=== PATIENT | female | born 1960 | race Caucasian/White ===

== ENCOUNTER 2017-01-19 13:48 | Emergency (ER) | payer MEDICAID ==
[2017-01-19 15:53] VITALS: BP 124/88
== END 2017-01-19 15:33 | disposition home or self-care (01) ==
LOC: ED 13:48
DX: G89.29 Other chronic pain (principal); M25.552 Pain in left hip; Z79.891 Long term (current) use of opiate analgesic

== ENCOUNTER 2017-12-06 00:01 | Emergency (ER) | payer MEDICAID ==
[~2017-12-06] VITALS: Ht 167.6 cm; Wt 85.7 kg
[2017-12-06 00:03] VITALS: Ht 167.6 cm; Wt 85.7 kg
[2017-12-06 04:12] VITALS: BP 116/77
== END 2017-12-06 04:12 | disposition home or self-care (01) ==
LOC: ED 00:01
DX: S83.91XA Sprain of unspecified site of right knee, initial encounter (principal); M25.461 Effusion, right knee; Z88.0 Allergy status to penicillin; Z88.8 Allergy status to other drugs, medicaments and biological substances; W19.XXXA Unspecified fall, initial encounter; Y93.01 Activity, walking, marching and hiking; Y92.89 Other specified places as the place of occurrence of the external cause; Y99.8 Other external cause status

== ENCOUNTER 2019-04-11 17:52 | Emergency (ER) | payer MEDICAID ==
[~2019-04-11] VITALS: Ht 167.6 cm; Wt 82.6 kg
[2019-04-11 18:07] VITALS: Ht 167.6 cm; Wt 82.6 kg
[2019-04-11 20:23] LABS: BASOPHIL % 0.3 % (0-2); PLATELET COUNT 271 x10^3mcL (130-400); RED CELL DISTRIBUTION WIDTH 13.2 % (11.5-14.5)
[2019-04-11 20:47] LABS: ALBUMIN 3.8 g/dL (3.4-5.0); ALKALINE PHOSPHATASE 164 U/L (46-116); ALT/SGPT 132 U/L (14-59); AST/SGOT 88 U/L (15-37); BILIRUBIN TOTAL 0.42 mg/dL (0.20-1.00); CALCIUM 8.3 mg/dL (8.5-10.1); CARBON DIOXIDE 21.7 mmol/L (21-32); CHLORIDE SERUM 108 mmol/L (98-107); GFR1 > 60 mL/min; GLUCOSE SERUM 95 mg/dL (74-106); POTASSIUM SERUM 3.8 mmol/L (3.5-5.1); SODIUM SERUM 143 mmol/L (136-145); TOTAL PROTEIN, SERUM 8.1 g/dL (6.4-8.2)
[2019-04-11] MEDS ORDERED: NOR10T PO (21:11)
[2019-04-11] MEDS ORDERED: ATIVAN1 MG PO (21:11)
[2019-04-11 21:57] VITALS: BP 106/68
== END 2019-04-11 21:57 | disposition home or self-care (01) ==
LOC: ED 17:52
PROVIDERS: Emergency Medicine
DX: L30.4 Erythema intertrigo (principal); G89.29 Other chronic pain; M25.552 Pain in left hip; Z88.0 Allergy status to penicillin; Z88.6 Allergy status to analgesic agent; Z98.890 Other specified postprocedural states
CPT/HCPCS: J1956; J2270; J2405; J7030; J7040

== ENCOUNTER 2019-04-13 12:53 | Inpatient (IN) | payer MEDICAID ==
[~2019-04-13] VITALS: Ht 172.7 cm; Wt 80.7 kg
[~2019-04-13 12:53] MED LIST: ATIVAN1 MG PO; NOR10T PO
[2019-04-13 13:01] VITALS: Ht 172.7 cm; Wt 80.7 kg
--- NOTE | 2019-04-13 13:18 | NUR ---
PER PT WAS HERE THREE DAYS AGO FOR "SKIN INFECTION" TO LEFT HIP FOLD. PER PT STS SHE WAS INSTRUCTED BY DR. RAMOS TO COME BACK IF PT FELT WORSE OR "INFECTION" WORSENED. PER PT STS SHE HAS BEEN HAVING A FEVER OF "101 AND SHAKING". LEFT HIP SKIN FOLD NOTED WITH FOWEL ODOR, ECCHYMOSIS NOTED TO SKIN. PER PT TOLD PT TO COME BACK AND TO BE ADMITTED. PT STS THAT SHE IS HAVING NAUSEA AND VOMITING. PT STS SHE HAS NOT VOMITED TODAY BUT THAT SHE DID LAST NIGHT. PT DENIES ANY CHEST PAIN. PT STS SHE "JUST WANTS TO FEEL BETTER". VSS. NO DISTRESS NOTED. RESP E/U. WILL CONTINUE TO MONITOR.
--- NOTE | 2019-04-13 14:21 | NUR ---
PT FILLING OUT PAPERS FOR INFORMATION FROM [facility].
--- NOTE | 2019-04-13 14:40 | NUR ---
PT HEARD YELLING AND FOUND ON FLOOR NEXT TO TINO. PT STS LEFT LOWER LEG PAIN, NO DEFORMITY NOTED, NO ECCHYMOSIS NOTED. PT HAS NOTED SURGICAL SCARS TO LEFT LEG. PT DENIES HITTING HEAD. PT KEEPS SAYING PREVIOUSLY AND NOW THAT SHE JUST DOESNT FEEL RIGHT AND "I WANT TO BE ADMITTED". PT HAS BEEN AGITATED SINCE VISIT INSISTING WANTING TO BE ADMITTED FOR LEFT "HIP INFECTION" PER PT. DR. PEREZ AT BEDSIDE FOR POST FALL. PT INSISTING ON PAIN MEDICATIONS SINCE ARRIVAL TO ED. PT DENIES DIZZINESS OR PAIN. VSS. PT TAKEN TO XRAY. WILL CONTINUE TO MONITOR. +CAP REFILL ALL EXTREMITIES.
--- NOTE | 2019-04-13 15:15 | NUR ---
PT AGAIN REQUESTING PAIN MEDICATION. DR. PEREZ MADE AWARE. PT ALSO REQUESTING FOOD. DR. PEREZ INFORMED PT SHE CANNOT EAT OR DRINK CURRENTLY. PT RESPONDS WITH AGGRAVATED "I DONT FEEL GOOD!". VSS. RESP E/U. WILL CONTINUE TO MONITOR.
--- NOTE | 2019-04-13 15:27 | NUR ---
PT REQUESTING PAIN MEDICATION FOR 06/03 "MASSIVE HEADACHE" AND REQUESTING ATIVAN, PT STS "I HAVE BAD ANXIETY AND I DIDN'T TAKE MY MEDS TODAY" MD PEREZ MADE AWARE
--- NOTE | 2019-04-13 15:28 | NUR ---
PT IN NAD AT THIS TIME, RESTING IN POSITION OF COMFORT, RESPS E/U, WILL CONTINUE TO MONITOR
--- NOTE | 2019-04-13 15:55 | NUR ---
BOTH RAILS OF GURNEY UP AND BED IN LOWEST POSITION
--- NOTE | 2019-04-13 15:55 | NUR ---
PT REQUESTING PAIN MEDICATION AGAIN, MD PEREZ MADE AWARE, NO NEW ORDERS AT THIS TIME, COMFORT MEASURES INITIATED, LIGHTS DIMMED AND PILLOW PROVIDED PER PT REQUEST AND COMFORT, CALL LIGHT WITHIN REACH, PT INSTRUCTED TO CALL IF ANY ASSISTANCE IS NEEDED. WILL CONTINUE TO MONITOR
[2019-04-13 16:57] LABS: BASOPHIL % 0.3 % (0-2); PLATELET COUNT 260 x10^3mcL (130-400); RED CELL DISTRIBUTION WIDTH 13.1 % (11.5-14.5)
[2019-04-13 16:59] LABS: CALCIUM 8.5 mg/dL (8.5-10.1); CARBON DIOXIDE 19.6 mmol/L (21-32); CHLORIDE SERUM 109 mmol/L (98-107); GFR1 > 60 mL/min; GLUCOSE SERUM 81 mg/dL (74-106); POTASSIUM SERUM 3.5 mmol/L (3.5-5.1); SODIUM SERUM 142 mmol/L (136-145)
[2019-04-13 17:04] LABS: ALBUMIN 3.8 g/dL (3.4-5.0); ALKALINE PHOSPHATASE 151 U/L (46-116); ALT/SGPT 106 U/L (14-59); AST/SGOT 59 U/L (15-37); BILIRUBIN TOTAL 0.88 mg/dL (0.20-1.00); TOTAL PROTEIN, SERUM 7.7 g/dL (6.4-8.2)
[2019-04-13 17:24] LABS: C REACTIVE PROTEIN 0.2 mg/dL (<=0.9)
--- NOTE | 2019-04-13 17:31 | NUR ---
REPORT GIVEN TO EL OCHOA TO ASSUME CARE OF PT.
[2019-04-13 17:45] LABS: ERYTHROCYTE SED RATE 18 mm/hr (0-30)
[2019-04-13 18:04] VITALS: BP 93/58
--- NOTE | 2019-04-13 18:15 | NUR ---
RECEIVED FROM ER, TRANSPORTED VIA [facility]. AWAKE AND ALERT. ORIENTED TO NAME, PLACE, TIME AND SITUATION. SPEECH CLEAR AND APPROPRIATE. BREATHING EVEN AND UNLABORED ON ROOM AIR, LUNG SOUNDS CLEAR. ABLE TO MAKE NEEDS KNOWN. STATED SOUGHT ADMISSION DUE TO RECURRING PAIN TO LEFT HIP. SKIN ALTERATION NOTED TO ABDOMINAL FOLD TO LEFT HIP AREA. MALODOROUS. SEE PHOTODOCUMENTATION. SALINE LOCK TO LEFT FOREARM. ADMISSION ASSESSMENT AND HISTORY DONE. INSTRUCTED ON USE OF CALL LIGHT TO CALL FOR ASSISTANCE. PLACED WITHIN EASY REACH. ENDORSED TO NURSE GALLEGOS
--- NOTE | 2019-04-13 19:30 | NUR ---
CALLED DR VARGAS.PER PT SHE WANTED TO CONTINUE HER HOME MEDICATION. WAITING FOR CALL BACK.
--- NOTE | 2019-04-13 19:34 | NUR ---
REPORT GIVEN TO DON MILLER. PATIENT IN BED RESTING. RN MADE AWARE THAT THERE IS STILL NEED TO PAGE DR DUQUE FOR HOME MEDICATIONS AND DIET ORDER NEEDED. PATIENT WISH TO CONTINUE HOME MEDICATIONS OF PO NORCO AND PO ATIVAN. CALL LIGHT IN REACH, NO COMPLAINTS AT THIS TIME.
--- NOTE | 2019-04-13 20:00 | NUR ---
DR VARGAS CALLED BACK. PER DR BLUNT OKAY TO CONTINUE HOME MEDICATION.
--- NOTE | 2019-04-13 20:02 | NUR ---
RECEIVED PT IN BED RESTING.AAOX4. NO ACURE RESPIRATORY DISTRESS NOTED. DENIES ANY PAIN AT THIS TIME. IV SITE PATENT AND INTACT. WOUND TO LEFT HIP WITH DRESSING.BED IN LOWEST POSITIO,CALL LIGHT WITHIN REACH. WILL CONTINUE TO MONITOR.
--- NOTE | 2019-04-13 20:30 | NUR ---
PT C/O ANXIETY. MEDICATE ATIVAN 1MG PO ORDERED. WILL CONTINUE TO MONITOR.
[2019-04-13 21:13] VITALS: BP 107/64
--- NOTE | 2019-04-13 22:24 | NUR ---
PT C/O LEFT HIP PAIN 04/03. MEDICATED NORCO 10/325MG PO ORDERED. WILL CONTINUE TO MONITOR.
--- NOTE | 2019-04-14 02:47 | NUR ---
PT C/O LEFT HIP PAIN 05/04. MEDICATED NORCO 10/325 MG PO ORDERED. WILL CONTINUE TO MONITOR.
[2019-04-14 05:45] VITALS: BP 103/68
--- NOTE | 2019-04-14 05:59 | NUR ---
PT REMAINED ASLEEP. NO SOB NOTED. DENIES PAIN AT THIS TIME. BED IN LOWEST POSITION,CALL LIGHT WITHIN REACH. WILL CONTINUE TO MONITOR.
[2019-04-14 06:24] LABS: BASOPHIL % 0.4 % (0-2); PLATELET COUNT 208 x10^3mcL (130-400); RED CELL DISTRIBUTION WIDTH 13.1 % (11.5-14.5)
[2019-04-14 06:37] LABS: CALCIUM 8.2 mg/dL (8.5-10.1); CARBON DIOXIDE 23.1 mmol/L (21-32); CHLORIDE SERUM 108 mmol/L (98-107); CREATININE SERUM 0.9 mg/dL (0.6-1.0); GFR1 > 60 mL/min; GLUCOSE SERUM 104 mg/dL (74-106); POTASSIUM SERUM 3.7 mmol/L (3.5-5.1); SODIUM SERUM 142 mmol/L (136-145)
--- NOTE | 2019-04-14 07:20 | NUR ---
RECEIVED PT FROM CESSPOOL CLEANER, RESTING IN BED COMFORTABLY. DENIES ANY PAIN THIS TIME. SAFTEY PRECAUTIONS ARE IN PLACE. WILL MONITOR.
--- NOTE | 2019-04-14 07:33 | NUR ---
CARE ENDORSED TO DAY NURSE MADHAV.
--- NOTE | 2019-04-14 07:45 | NUR ---
PT RESTING IN BED COMFORTABLY. DENIES ANY PAIN THIS TIME. STABLE. ASSESSED AND WILL DOCUMENT. SAFTEY PRECAUTIONS ARE IN PLACE. WILL MONITOR.
[2019-04-14 09:21] VITALS: BP 93/49
--- NOTE | 2019-04-14 09:39 | NUR ---
PT C/O ANXIETY, ATIVAN PO GIVEN ORDER AT 0839 AND REASSESSED NOW AND PT IS SLEEPING. STABLE.
--- NOTE | 2019-04-14 11:23 | NUR ---
PT RESTING IN BED COMFORTABLY. SLEEPING. DENIES PAIN.
--- NOTE | 2019-04-14 14:51 | NUR ---
PT C/O LEFT SIDE ABD FOLDER/LEFT HIP WOUND PAIN,04/03. ADMINISTERED ULTRUM PO ODRERED AT 1351 AND REASSSESSED NOW, PT SAID HER PAIN IS GONE. PLEASANT.
[2019-04-14 18:00] VITALS: BP 109/63
--- NOTE | 2019-04-14 19:15 | NUR ---
PT RECEIVED FROM THE DAY SHIFT RN. PT IS ALERT AND ORIENTED X4, CALM AND COOPERATIVE WITH CARE, PT IS RAPID SPEAKING AND APPEARS ANXIOUS, PT IS COMPLAINING OF LEFT SIDE HIP PAIN AT THIS TIME. PT STATES THE PAIN IS A 5/10 AND IS SHARP. WILL MEDICATE WITH PRN PAIN MEDICATION, IV INFUSING AND INTACT, SAFETY AND COMFORT MEASURES MAINTAINED, CALL LIGHT WITHIN REACH. WILL CONTINUE TO MONITOR AT THIS TIME.
--- NOTE | 2019-04-14 19:18 | NUR ---
PT C/O LEFT HIP PAIN IN THE WOUND SITE,03/03. ADMINISTERED NORCO PO ORDER AT 1817 AND REASSESSED NOW. PT SAID HER PAIN IS GETTING BETTER AND TOLERABLE,09/03. GAVE REPORT TO MAINSPRING FORMER NURSE.
[2019-04-14 20:58] VITALS: BP 106/67
--- NOTE | 2019-04-15 00:13 | NUR ---
PT IS AWAKE AND WATCHING TV AT THIS TIME. PT HAS NO COMPLAINTS AT THIS TIME. PT HAS BEEN COOPERATIVE WITH NURSING CARE, ALERT AND ORIENTED X4. PT HAS NO COMPLAINT OF PAIN AT THIS TIME. SAFETY AND COMFORT MEASURES MAINTAINED, BED IN LOWEST POSITION, CALL LIGHT WITHIN REACH.
[2019-04-15 05:00] VITALS: BP 129/69
--- NOTE | 2019-04-15 05:12 | NUR ---
PT RESTED IN INTERMITTENT INTERVALS THROUGHOUT THE SHIFT, PT HAS BEEN CALM AND COOPERATIVE WITH CARE, NO ACUTE DISTRESS NOTED. PT IS CURRENTLY RESTING IN BED WITH EYES CLOSED, IV INFUSING AND INTACT, SAFETY AND COMFORT MEASURES MAINTAINED BED IN LOWEST POSITION, CALL LIGHT WITHIN REACH, WILL ENDORSE CONTINUITY OF CARE TO THE ONCOMING RN.
[2019-04-15 06:58] LABS: BASOPHIL % 0.6 % (0-2); PLATELET COUNT 191 x10^3mcL (130-400); RED CELL DISTRIBUTION WIDTH 12.5 % (11.5-14.5)
[2019-04-15 07:04] LABS: BILIRUBIN DIRECT 0.16 mg/dL (0.0-0.2); BILIRUBIN TOTAL 0.4 mg/dL (0.20-1.00); TOTAL PROTEIN, SERUM 6.3 g/dL (6.4-8.2)
[2019-04-15 07:26] LABS: CALCIUM 8.1 mg/dL (8.5-10.1); CARBON DIOXIDE 20.3 mmol/L (21-32); CHLORIDE SERUM 109 mmol/L (98-107); CREATININE SERUM 0.7 mg/dL (0.6-1.0); GFR1 > 60 mL/min; GLUCOSE SERUM 106 mg/dL (74-106); POTASSIUM SERUM 3.4 mmol/L (3.5-5.1); SODIUM SERUM 142 mmol/L (136-145)
--- NOTE | 2019-04-15 07:30 | NUR ---
RECEIVED PT FROM PERSONAL BANKING REPRESENTATIVE. PT IS SLEEPING THIS TIME. NO SIGNS OF PAIN. SAFTEY PRECAUTIONS ARE IN PLACE. WILL MONITOR.
[2019-04-15 09:22] VITALS: BP 115/68
--- NOTE | 2019-04-15 09:55 | NUR ---
PT SAID SHE IS ANXIOUS AND REQUESTED FOR ATIVAN PO. ATIVAN PO GIVEN ORDERED AND WILL MONITOR.
--- NOTE | 2019-04-15 11:00 | NUR ---
PT RESTING IN THE BED,SLEEPING THIS TIME.
--- NOTE | 2019-04-15 12:35 | NUR ---
RECEIVED PT FROM RADIOLGY AFTER BONE BIOPSY OF LEFT HIP. V/S STABLE. BP=96/60 WITH MAP 72, HR 62, RESP=16, SPO2 98% AND TEMP=98.6. PT DENIES PAIN THIS TIME. SAFTEY PRECAUTIONS ARE IN PLACE. BAND-AID TO LEFT HIP.
--- NOTE | 2019-04-15 14:08 | NUR ---
PT IS SLEEPING THIS TIME. STABLE.
[2019-04-15 17:32] VITALS: BP 99/58
--- NOTE | 2019-04-15 18:15 | NUR ---
PT IS STABLE. DENIES PAIN THIS TIME.
--- NOTE | 2019-04-15 19:26 | NUR ---
PT RESTING IN BED COMFORTABLY. DENIES ANY PAIN THIS TIME. STABLE. GAVE REPORT TO NUTRITION INTERNSHIP NURSE.
--- NOTE | 2019-04-15 21:00 | NUR ---
Awake and verbally responsive. No respiratory distress noted on room air. Denies pain at this time. Denies n/v. With anxiety, ativan given as ordered with help. Will cont.to monitor. Call light within reach.
[2019-04-15 21:44] VITALS: BP 97/63
--- NOTE | 2019-04-16 04:22 | NUR ---
Afebrile. No significant change in condition noted. Pain controlled. Denies n/v. Assisted with needs. Cont.on IV flagyl, vancomycin. In no apparent distress.
[2019-04-16 05:42] VITALS: BP 122/80
[2019-04-16 06:42] LABS: BASOPHIL % 0.5 % (0-2); PLATELET COUNT 185 x10^3mcL (130-400); RED CELL DISTRIBUTION WIDTH 12.6 % (11.5-14.5)
--- NOTE | 2019-04-16 07:25 | NUR ---
RECEIVED PT FROM PULP HOUSE SUPERVISOR. PT AWAKE, ALERT. A/OX4. PT ON ROOM AIR WITH NO RESP DISTRESS NOTED. LUNGS CTA. PERIPHERAL PULSES PALPABLE, NO EDEMA NOTED. IV ACCESS LH CDI INFUSING NS AT 80ML/HR. ACTIVE BS NOTED, PT REPORTS PASSING GAS BUT NO BM X3 DAYS. PT STATES THAT IS HER NORMAL, WILL MONITOR FOR BM. PT REPORTS HAVING ANXIETY, WILL MEDICATE PRN. PT REPORTS PAIN IN LEFT HIP BUT TOLERABLE AT THIS TIME. SAFETY MEASURES IN PLACE, BED LOW AND LOCKED. CALL LIGHT WITHIN REACH.
[2019-04-16 07:35] LABS: ALKALINE PHOSPHATASE 108 U/L (46-116); ALT/SGPT 80 U/L (14-59); AST/SGOT 43 U/L (15-37); BILIRUBIN DIRECT 0.14 mg/dL (0.0-0.2); BILIRUBIN TOTAL 0.4 mg/dL (0.20-1.00); CALCIUM 8.1 mg/dL (8.5-10.1); CARBON DIOXIDE 21.8 mmol/L (21-32); CHLORIDE SERUM 108 mmol/L (98-107); CREATININE SERUM 0.7 mg/dL (0.6-1.0); GFR1 > 60 mL/min; GLUCOSE SERUM 105 mg/dL (74-106); POTASSIUM SERUM 3.1 mmol/L (3.5-5.1); SODIUM SERUM 143 mmol/L (136-145)
[2019-04-16 07:44] LABS: TOTAL PROTEIN, SERUM 6.1 g/dL (6.4-8.2)
--- NOTE | 2019-04-16 09:45 | NUR ---
PT COMPLAINING OF PAIN 9/10 IN LEFT HIP. NORCO ADMINISTERED ORDERED PRN (SEE EMAR) WILL CONTINUE TO MONITOR.
[2019-04-16 10:05] VITALS: BP 100/58
--- NOTE | 2019-04-16 11:08 | NUR ---
PT SLEEPING AT THIS TIME WITH NO ACUTE DISTRESS OR DISCOMFORT NOTED.
--- NOTE | 2019-04-16 11:54 | NUR ---
DUE POTASSIUM ADMINISTERED ORDERED. PT TOLERATED WELL. NO ACUTE DISTRESS OR DISCOMFORT NOTED AT THIS TIME. SAFETY MAINTAINED.
--- NOTE | 2019-04-16 15:50 | NUR ---
PT COMPLAINING OF SWELLING TO LEFT HIP AND PAIN. PT STATES SHE CANNOT REST. TRAMADOL ADMINISTERED FOR PAIN PO. COLD PACKS GIVEN TO RELIEVE INFLAMMATION. DUE ANTIBIOTIC ADMINISTERED. WILL CONTINUE TO MONITOR.
[2019-04-16 16:19] VITALS: BP 100/58
--- NOTE | 2019-04-16 16:26 | NUR ---
CALLED [facility] DISPATCH TO SCHEDULE PT REGIONAL MARKETING MANAGER TIME, THAT WAS PLACED ON WILL CALL BY ENERGY ADMINISTRATOR, NEXT AVAILABLE PER [facility] STAFF IS AT 1830. DAREK OCHOA ASSIGNED TO THIS PT MADE AWARE OF ABOVE. PT [place] [facility] [place].
--- NOTE | 2019-04-16 16:44 | NUR ---
CALLED REPORT TO ROGER URIAS SPOKE TO MARTINA. PT AWARE OF TRANSFER, DISCHARGE PAPERWORK/EDUCATION PROVIDED TO PT. PT VERBALIZEDS UNDERSTANDING. ESTIMATED MECHATRONICS ENGINEER TIME 1700.
[2019-04-16 16:50] VITALS: BP 123/71
--- NOTE | 2019-04-16 18:20 | NUR ---
PT COMPLAINING OF PAIN IN LEFT HIP 05/04. ASKING FOR PAIN MED. NORCO ADMINISTERED ORDERED PRN. WILL CONT TO MONITOR. AMS CALLED AND IS RUNNING LATE. WILL CONTINUE TO MONITOR.
--- NOTE | 2019-04-16 18:46 | NUR ---
PT STABLE AT THIS TIME. ALL NEEDS TENDED TO THROUGHOUT SHIFT. WILL CONTINUE TO MONITOR AND ENDORSE CARE TO RIPSAW GRADER.
--- NOTE | 2019-04-16 19:29 | NUR ---
PT WAS PICKED UP BY [facility] VIA [place]. TRANSFER PACKET WAS GIVEN. REPORT WAS GIVEN BY PRIMARY NURSE DAREK TO [facility].
== END 2019-04-16 19:32 | disposition short-term general hospital (02) | DRG 344 ==
LOC: ED 12:53 → MU 16:34
PROVIDERS: Emergency Medicine; ADMIT Internal Medicine
PROC: 0QB73ZX Excision of Left Upper Femur, Percutaneous Approach, Diagnostic (ICD-10-PCS; principal; 2019-04-15)
PROC: 0Q9 Lower Bones, Drainage (ICD-10-PCS; 2019-04-15)
DX: M86.8X8 Other osteomyelitis, other site (principal); F15.21 Other stimulant dependence, in remission; M16.12 Unilateral primary osteoarthritis, left hip; M45.8 Ankylosing spondylitis sacral and sacrococcygeal region; F17.210 Nicotine dependence, cigarettes, uncomplicated; Z87.828 Personal history of other (healed) physical injury and trauma; Z96.652 Presence of left artificial knee joint; Z68.28 Body mass index [BMI] 28.0-28.9, adult
CPT/HCPCS: 99406; G0378; J1956; J2001; J3370; J3490; J7030; Q0092